=== PATIENT | female | born 1985 | race Caucasian/White ===

== ENCOUNTER 2017-03-28 21:36 | Emergency (ER) | payer OTHER ==
[2017-03-28 23:30] VITALS: BP 145/80
== END 2017-03-28 23:30 | disposition home or self-care (01) ==
LOC: ED 21:36
DX: M54.5 Low back pain (principal); M25.551 Pain in right hip; J45.909 Unspecified asthma, uncomplicated; Z88.8 Allergy status to other drugs, medicaments and biological substances; Z88.6 Allergy status to analgesic agent; Z79.899 Other long term (current) drug therapy